=== PATIENT | female | born 1965 | race Caucasian/White ===

== ENCOUNTER → 2020-09-26 12:11 | Outpatient (CLI) | payer BC, SELFPAY ==
--- NOTE | ~2020-09-26 | MM_ITS ---
EXAMINATION: MM screening [facility] BI w franklyn HISTORY: Screening TECHNIQUE: Craniocaudal and mediolateral oblique 3-D tomosynthesis images were obtained and synthetic 2-D images were generated. CAD analysis was submitted and interpreted. COMPARISON: Comparison to multiple prior studies sequentially, with oldest reviewed study dated 06/13. BREAST PARENCHYMAL COMPOSITION: There are scattered areas of fibroglandular density. FINDINGS: There is no evidence of suspicious mass, calcification, or architectural distortion to sugg est malignancy in either breast. There has been no suspicious interval change. IMPRESSION: 1. No mammographic evidence of malignancy. 2. Recommend routine screening mammography in one year. BI-RADS Category 1: Negative Reviewed, dictated and finalized at location A. [employer]
== END ==
PROVIDERS: Visit Provider Nurse Practitioner
DX: Z12.31 Encounter for screening mammogram for malignant neoplasm of breast (principal)
CPT/HCPCS: 77063; 77067

== ENCOUNTER → 2021-10-04 07:45 | Outpatient (CLI) | payer BC, SELFPAY ==
--- NOTE | ~2021-10-04 | DEXA_ITS ---
Bone Density Report Name: COLLIN LAWRENCE Age: 56 Sex: Female Ethnicity: White Date of : 1965 Indication: postmenopausal osteoporosis; monitoring treatment; height loss; hysterectomy; Referring Provider: Darshan*Chacha Brandon Study: Bone densitometry was performed. Exam Date: October 04, 2021 Accession number: [id number] Bone Density: Region BMD T-score Z-score Classification AP Spine (L1-L4) 0.797 -2.3 -1.0 Osteopenia Femoral Neck (Left) 0.570 -2.5 -1.4 Osteoporosis Total Hip (Left) 0.725 -1.8 -1.0 Osteopenia Femoral Neck (Right) 0.531 -2.9 -1.7 Osteoporosis Total Hip (Right) 0.718 -1.8 -1.0 Osteopenia Total Hip Mean 0.722 -1.8 -1.0 Osteopenia World Health Organization criteria for BMD impression classify patients as: Normal (T-score at or above -1.0), Osteopenia (T-score between -1.0 and -2.5), or Osteoporosis (T-score at or below -2.5). 10-year Fracture Risk: FRAX not reported because: Some T-score for Spine Total or Hip Total or Femoral Neck at or below -2.5 Treated for osteoporosis Previous Exams: Region Exam Age BMD T-score BMD Change BMD Change Date g/cm2 vs Baseline vs Previous AP Spine(L1-L4) 10/04/2021 56 0.797 -2.3 -0.075* 0.056* 08/29/2019 54 0.741 -2.8 -0.131* -0.070* 07/19/2017 52 0.811 -2.1 -0.062* -0.062* 06/12/2015 50 0.872 -1.6 Total Hip(Left) 10/04/2021 56 0.725 -1.8 -0.104* 0.020 08/29/2019 54 0.705 -1.9 -0.125* -0.104* 07/19/2017 52 0.809 -1.1 -0.021 -0.021 06/12/2015 50 0.830 -0.9 Total Hip(Right) 10/04/2021 56 0.718 -1.8 -0.123* 0.033* 08/29/2019 54 0.685 -2.1 -0.156* -0.105* 07/19/2017 52 0.790 -1.2 -0.052* -0.052* 06/12/2015 50 0.842 -0.8 *Denotes significance at 95% confidence level, LSC for AP Spine = 0.022 g/cm2, LSC for Total Hip = 0.027 g/cm2 Clinical Information Provided by Patient: Smokes Is being treated for osteoporosis Has used the following medications: HRT (i.e. estrogen/hormone therapy), Prolia (i.e. denosumab), Vitamin D, Calcium Has the following medical conditions: Hysterectomy Patient maximum height was 65 Menopause Age: 48 Does not regularly consume dairy products Onset of menses at age 11 Number of children 1 Impression: The patient has osteoporosis, based on the Right Femoral Neck T-score.
--- NOTE | ~2021-10-04 | MM_ITS ---
EXAMINATION: MM screening [facility] BI w franklyn HISTORY: Screening mammogram TECHNIQUE: Craniocaudal and mediolateral oblique 3-D tomosynthesis images were obtained and synthetic 2-D images were generated. CAD analysis was submitted and interpreted. COMPARISON: 09/26/2020, 08/29/2019, 07/29/2018 BREAST PARENCHYMAL COMPOSITION: There are scattered areas of fibroglandular density. FINDINGS: There is no evidence of suspicious mass, calcification, or architectural distortion to sugg est malignancy in either breast. There has been no suspicious interval change. IMPRESSION: 1. No mammographic evidence of malignancy. 2. Recommend routine screening mammography in one year. BI-RADS Category 1: Negative Reviewed, dictated and finalized at location A. [employer]
== END ==
PROVIDERS: Visit Provider Nurse Practitioner
DX: Z12.31 Encounter for screening mammogram for malignant neoplasm of breast (principal); M85.89 Other specified disorders of bone density and structure, multiple sites; M81.0 Age-related osteoporosis without current pathological fracture; Z78.0 Asymptomatic menopausal state
CPT/HCPCS: 77063; 77067; 77080

== ENCOUNTER 2021-12-01 11:16 | Outpatient (CLI) | payer BC, SELFPAY ==
--- NOTE | 2021-12-01 11:24 | ECG_ITS ---
Measurements Intervals [place] Rate: 58 P: 71 TX: 156 QRS: 56 QRSD: 78 T: 27 QT: 405 QTc: 399 Interpretive Statements SINUS BRADYCARDIA WITH SINUS ARRHYTHMIA NORMAL ECG Electronically Signed On 12-01-2021 15:45:01 CDT by Silas Anne M.D.
== END 2021-12-01 11:17 | disposition home or self-care (01) ==
LOC: ANHSURGERY 11:21
PROVIDERS: PCP Family Medicine; Visit Provider Otolaryngology
DX: I10 Essential (primary) hypertension (principal); Z01.818 Encounter for other preprocedural examination
CPT/HCPCS: 93005

== ENCOUNTER 2021-12-05 01:48 | Day surgery (SDC) | payer BC, SELFPAY ==
[2021-11-26 14:23] VITALS: BMI 19.1
--- NOTE | 2021-11-26 14:36 | PC.NURSE ---
Report to the Outpatient Waiting Room, entrance under the green pavilion located off [facility], at time 10:30 on date 12/05/21. OR Time: 12:30. - You and your visitor will be asked a series of questions to screen for COVID 19 for your protection. - A mask is required within the hospital. One visitor will be allowed to accompany the patient into the hospital. Patients visitor will be instructed to remain with patient at all times or leave the building. We will allow the visitor to come back to the postoperative area when patient is ready. Preoperative COVID Testing Requirements: No COVID Test needed if: (proof is required; if not received patient will have Rapid Test prior to entry) - Patient has received COVID Vaccine at least 14 days prior to procedure date or - Patient has positive COVID test result within last 90 days of surgery date. COVID Test needed if above criteria is not met Patients may have clear liquids (water, carbonated beverages, clear teas, apple juice) until 3 hours prior to surgery (9:30) with a maximum of 20 ounces. - No food from midnight until time of surgery Take the following medications with a SIP of water the morning of surgery: NONE Medications to discontinue per physician: VITAMINS/SUPPLEMENTS Date to take last dose: 12/01/21 Please no make-up, nail [place], hairspray, perfume, deodorant, or body powder the day of surgery. No jewelry (including any body piercings) or valuables the day of surgery, leave them at home. Please take a shower or bath the night before, or the morning of, surgery with an antibacterial soap. Wear comfortable, loose fitting clothing. - Jewelry must be removed prior to entering the operating room. Rings and piercings that are not removed may be cut off. - The hospital will not accept responsibility for valuables. - Please leave all valuables, including medications, at home the day of surgery. If you are going home after surgery, a licensed independent driver must drive you home. - NO public transportation without another adult. - We recommend that an adult stay with you for 24 hours following discharge. - We also recommend that you do not drive, make important decision, drink alcoholic beverages, or take any drugs that were not prescribed by your health care provider for at least 24 hours after your discharge time. Follow any additional instructions given to you from your surgeon. Telephone instructions given to COLLIN LAWRENCE and asked if any additional questions and then verbalized understanding. Patient advised to call surgeon office or pre surgery nurse liaison [phone] if any additional questions.
--- NOTE | 2021-12-04 17:31 | PM.IMHP ---
H&P: HPI History of Present Illness Date/Time: 12/04/21 17:31 Chief Complaint: Lower lip hemangioma Narrative: patient presents for planned surgical procedure no change in symptoms no change in history Review of Systems Constitutional: Constitutional: Denies fatigue, Denies fever(s) and Denies lethargy Eyes: Eyes: Denies blurry vision and Denies change in vision ENT: Reports as per HPI Cardiovascular: Cardiovascular: Denies chest pain Respiratory: Respiratory: Denies cough Endocrine: Endocrine: Denies fatigue Hematologic/Lymphatic: Hematologic/Lymphatic: Denies easy bleeding, Denies easy bruising and Denies lymphadenopathy Allergic/Immunologic: Allergic/Immunologic: Denies seasonal rhinorrhea [facility] Family History Family History Mother Family history of coronary artery disease Social History Social History Smoking packs per day: 0.5 Smoking cigarettes per day: 10.0 Years smoked: 30 Smoking pack-years: 15.00 Smoking status: Former smoker Tobacco type: cigarettes Smoking end date: 03/16/20 Alcohol intake: never Substance use: never Substance use type: does not use Spiritual care concerns: No Meds Home Medications and Allergies Home Medications Medication Instructions Recorded Confirmed Type Saccharomyces boulardii 250 mg 250 mg PO BID 09/15/19 11/26/21 History capsule ospemifene 60 mg tablet 60 mg PO DAILY 09/15/19 11/26/21 History cetirizine 10 mg tablet 10 mg PO DAILY 03/18/20 11/26/21 History omeprazole 40 mg capsule,delayed 40 mg PO DAILY #30 cap 10/17/21 11/26/21 Rx release lisinopril 10 1 tablet PO DAILY #90 tablet 10/29/21 11/26/21 Rx mg-hydrochlorothiazide 12.5 mg tablet calcium carbonate [Calcium 500] 500 mg PO BID 11/26/21 11/26/21 History cholecalciferol (vitamin D3) 50 mcg PO DAILY 11/26/21 11/26/21 History [Vitamin D3] Allergies Allergy/AdvReac Type Severity Reaction Status Date / Time escitalopram AdvReac Unknown Abdominal Verified 11/26/21 14:20 Pain Dairy AdvReac Severe DIARRHEA Uncoded 11/26/21 14:20 Exam Const: General: cooperative, healthy appearing, comfortable, well developed and alert HENMT: Head: normal to inspection, normocephalic and atraumatic Ears: hearing grossly normal bilaterally, external ears normal, TM's normal bilaterally and EAC's normal General nose exam: Normal external nose present, Normal nares present, No nasal polyps present, Normal nasal mucous membranes and turbinates present and Normal septum present Face and sinus: normal facial exam Mouth: Yes Normal oral and palatal mucosa present, No lip normal ( lower lip hemangioma), Yes tongue normal, Yes oropharynx normal and Yes moist mucous membranes Teeth and gingiva: dentition normal and gingiva normal Throat: posterior oropharynx normal, tonsils normal and uvula midline Eyes: General: appearance normal, both eyes and all related structures Periorbital: periorbital findings normal Eyelids: eyelids normal Conjunctivae: conjunctivae normal Sclera: sclerae normal Neck: Neck: normal visual inspection, full ROM and no lymphadenopathy Thyroid: thyroid normal Lymphatic: no lymphadenopathy noted Resp: Effort & Inspection: normal respiratory effort and able to speak in complete sentences Cardio: Jugular venous distension: no JVD Neuro: Cranial nerves: Yes CN's II-XII intact bilaterally Assessment and Plan Assessment and plan (1) Hemangioma of lip: Code(s): D18.01 - Hemangioma of skin and subcutaneous tissue Status: Acute Assessment and Plan: plan is for the operating room excision of lower lip hemangioma will need small bipolar both sets, soft tissue Hima/ plastics tray. Risks were discussed including bleeding infection scar cosmetic deformity recurrence of the hemangioma need for further procedure need for follow-up. Kirstin
--- NOTE | 2021-12-05 07:12 | WPDHPUPDATE1 ---
History and Physical Update Update Date/Time: 12/05/21 07:12 History and Physical has been reviewed, including an updated exam of the patient. There are NO changes in the patient's condition. Risks, benefits, and alternatives have been discussed and questions answered. Patient agrees to proceed with procedure.
[2021-12-05 11:06] VITALS: BP 153/81; PULSE 56; RESP 16; TEMP 36.7; O2SAT 100
[2021-12-05] MEDS: LACTATED RINGERS 1,000 ML 30 ML IV CONT ×2 (11:22→14:41)
--- NOTE | 2021-12-05 11:29 | P.PNAN_ITS ---
Anes - Initial Pre Proc Eval Procedure: Operation Date: 12/05/21 14:00 Proposed Procedures p Excision Lower Lip Lesion - Surya Grider MD Date/Time: 12/05/21 11:29 Surgeon: Surya Grider MD Pre Op Diagnosis: lower lip lesion Patient Data Age: 56 Gender: F Height: 1.65 m Weight: 57.6 kg Last Vital Signs Temp 36.7 C 12/05/21 11:06 Pulse 56 L 12/05/21 11:06 Resp 16 12/05/21 11:06 BP 153/81 H 12/05/21 11:06 Pulse Ox 100 12/05/21 11:06 Allergies Allergy/AdvReac Type Severity Reaction Status Date / Time escitalopram AdvReac Unknown Abdominal Verified 11/26/21 14:20 Pain Dairy AdvReac Severe DIARRHEA Uncoded 11/26/21 14:20 Home Medications Medication Instructions Recorded Confirmed Type Saccharomyces boulardii 250 mg 250 mg PO BID 09/15/19 12/05/21 History capsule ospemifene 60 mg tablet 60 mg PO DAILY 09/15/19 12/05/21 History cetirizine 10 mg tablet 10 mg PO DAILY 03/18/20 12/05/21 History omeprazole 40 mg capsule,delayed 40 mg PO DAILY #30 cap 10/17/21 12/05/21 Rx release lisinopril 10 1 tablet PO DAILY #90 tablet 10/29/21 12/05/21 Rx mg-hydrochlorothiazide 12.5 mg tablet calcium carbonate [Calcium 500] 500 mg PO BID 11/26/21 12/05/21 History cholecalciferol (vitamin D3) 50 mcg PO DAILY 11/26/21 12/05/21 History [Vitamin D3] Patient hx anesthesia problems: none Family hx anesthesia problems: none Results Review: All pre-operative results and documents have been reviewed as part of the pre-operative evaluation. [facility] Past Medical History Medical History HTN (hypertension) Family History Family History Mother Family history of coronary artery disease Social History Social History Smoking packs per day: 0.5 Smoking cigarettes per day: 10.0 Years smoked: 30 Smoking pack-years: 15.00 Smoking status: Former smoker Tobacco type: cigarettes Smoking end date: 03/16/20 Alcohol intake: never Substance use: never Substance use type: does not use Living arrangements: with family Spiritual care concerns: No Anes - Eval Final PreProcedure Day of Procedure 12/05/21 11:29 Patient weight: normal Heart: regular rate and rhythm Lungs: clear to auscultation Airway: Mallampati scale class II Neurological: alert and oriented Last oral intake: >/= 8 hours ASA classification: II Emergent: no Anesthetic plan: proceed Anesthesia type and monitoring: general GIVS and standard monitoring Results Review: All pre-operative results and documents have been reviewed as part of the pre-operative evaluation. Informed Consent: The patient's anesthetic plan and its attendant risks and benefits were discussed with the patient/family/POA. Questions were solicited and answers provided to the satisfaction of the patient/family/POA.
--- NOTE | 2021-12-05 13:10 | SUR.PREOP ---
Warm blanket given to patient. Discussed delay, voices understanding.
[2021-12-05] MEDS: ceFAZolin SODIUM 1 GM VIAL IV PUSH (14:02)
[2021-12-05] MEDS: NEOMYCIN/POLYMYXIN/BACITRACIN OINTMENT PACKET 1 PACKET TOPICAL (14:34)
[2021-12-05 14:41] VITALS: BP 92/60; PULSE 53; RESP 17; TEMP 36.1; O2SAT 100
[2021-12-05 14:55] VITALS: BP 110/70; PULSE 68; RESP 20; O2SAT 100
[2021-12-05 15:10] VITALS: BP 152/78; PULSE 65; RESP 16
[2021-12-05 15:40] VITALS: BP 136/63; PULSE 61; RESP 16
--- NOTE | 2021-12-05 16:33 | W.PM.PROC2 ---
Procedure Note - Detailed Date of Procedure 12/05/21 Pre-op Diagnosis lower lip lesion Post-op Diagnosis Same Procedure Performed Excision of lower lip lesion Surgeon Surya Grider MD Anesthesia General Indications Lower lip lesion Findings Lower lip lesion consistent with meningioma removed in elliptical 1 via elliptical incision down to muscle Description of Procedure Patient identified consent verified. Patient brought OR. Time-out performed. Anesthesia induced LMA secured. Patient prepped and draped in a semi sterile fashion. Second time-out performed. Lip grabbed 0.5 cc injected just over the blue small lesion the lower lip. Fifteen C blade utilized elliptical incision made around lesion lesion dissected down to muscle orbicularis auris feeding vessels cauterized with Bovie suction electrocautery at a setting of 5. Lesion removed sent for pathologic analysis of note this was later misplaced and not sent. Lesion was then closed in deep layer using 1 interrupted 4-0 Monocryl suture the lip skin was closed with 4 interrupted 5 0 fast gut sutures. Patient tolerated the procedure very well. No complications. Antibiotic ointment placed. Prior to closure the wound was copiously irrigated. Care the patient turned Anesthesiology. Estimated Blood Loss 1 Drains No Packing No Pathology None sent Complications No immediate complications Condition Stable Disposition PACU
== END 2021-12-05 16:05 | disposition home or self-care (01) ==
PROVIDERS: PCP Family Medicine; Visit Provider Otolaryngology
PROC: (CPT 40810; principal; 2021-12-05 14:00)
DX: D18.01 Hemangioma of skin and subcutaneous tissue (principal); Z87.891 Personal history of nicotine dependence
CPT/HCPCS: 11441; 12051; A9270; J0690; J1100; J2250; J2405; J2704; J3010; J7120

== ENCOUNTER 2022-09-18 13:57 | Emergency (ER) | payer BC, SELFPAY ==
[2022-09-18 14:21] VITALS: BP 121/63; PULSE 86; RESP 18; TEMP 38.1; O2SAT 99
--- NOTE | 2022-09-18 14:44 | ED.URI ---
HPI - URI/Sore Throat General Chief Complaint: Upper Respiratory Infection Stated Complaint: nasal drainage,sorethroat,bilateral ear pain Time Seen by Provider: 09/18/22 14:45 Source: patient and RN notes reviewed Mode of arrival: ambulatory Limitations: no limitations History of Present Illness HPI Narrative: 57-year-old female presented for complaint of sinus pressure, congestion, sore throat and ear pain over the last 3 days. She denies fatigue, nausea vomiting, diarrhea shortness of breath, wheezing, fevers or chills. She started taking Zyrtec for symptoms. She endorses her tested positive for COVID 7 days ago. She has not tested for COVID. MD elicited complaint: cough Related Data Home Medications Medication Instructions Recorded Confirmed ospemifene 60 mg tablet (Osphena) 60 mg PO DAILY 09/15/19 09/18/22 Allergies Allergy/AdvReac Type Severity Reaction Status Date / Time escitalopram AdvReac Unknown Abdominal Verified 09/18/22 14:31 Pain Dairy AdvReac Severe DIARRHEA Uncoded 09/18/22 14:31 Review of Systems Review of Systems: CONSTITUTIONAL: denies malaise, chills, sweats, fever EYES: Denies visual changes, redness, or discharge ENT: Reports rhinorrhea, congestion, sinus pain, otalgia, sore throat CARDIOVASCULAR: Denies chest pain, palpitations, edema RESPIRATORY: Reports cough, post nasal drainage. Denies dyspnea GASTROINTESTINAL: Denies abdominal pain, nausea, vomiting, diarrhea SKIN: Denies rash or itching MUSCULOSKELETAL: denies myalgia NEUROLOGIC: Denies headache PMF Past Medical History Medical History HTN (hypertension) Family History Family History Mother Family history of coronary artery disease Social History Social History Smoking packs per day: 0.5 Smoking cigarettes per day: 10.0 Years smoked: 30 Smoking pack-years: 15.00 Smoking status: Former smoker Tobacco type: cigarettes Smoking end date: 03/16/20 Alcohol intake: never Substance use: never Substance use type: does not use Spiritual care concerns: No Exam Narrative: GENERAL: Ill-appearing, nontoxic EYES: PERRLA, conjunctivae clear ENT: Mucous membranes moist. TM pearly douglas with dull light reflex bilaterally; no tragal tenderness. Oropharynx erythematous without lesions or exudate, no drooling, no hoarseness, no trismus, uvula midline. CHEST: Clear to auscultation, breath sounds equal. No wheezing, rhonchi, rales, or stridor. No respiratory distress, speaks in full sentences. HEART: Regular rate and rhythm. No murmur heard. SKIN: Warm, dry, no rash. NEURO: Alert and oriented x3. PSYCH: Normal mood and affect Course Course Emergency Course: Patient is aware of diagnosis, understands and agrees to treatment plan. Anticipatory guidance given. Patient agrees to follow-up as directed and is aware of reasons to seek care at the emergency department. Portions of this record may have been created with voice recognition software Level of Care: Express Care Visit Vital Signs Vital signs: Vital Signs Temperature 100.5 F H 09/18/22 14:21 Pulse Rate 86 09/18/22 14:21 Respiratory Rate 18 09/18/22 14:21 Blood Pressure 121/63 09/18/22 14:21 Pulse Oximetry 99 09/18/22 14:21 Oxygen Delivery Room Air 09/18/22 14:21 Temperature 100.5 F H 09/18/22 14:21 Pulse Rate 86 09/18/22 14:21 Respiratory Rate 18 09/18/22 14:21 Blood Pressure 121/63 09/18/22 14:21 Pulse Oximetry 99 09/18/22 14:21 Oxygen Delivery Room Air 09/18/22 14:21 reviewed MDM - URI/Sore Throat MDM Narrative Medical decision making narrative: flu and strep negative. Advise COVID test due to known exposure. Covid positive. Advised supportive measures and signs/symptoms to go to the ER. Pt is appropriate for outpt
== END 2022-09-18 15:10 | disposition home or self-care (01) ==
PROVIDERS: Emergency Provider Nurse Practitioner Family; PCP Family Medicine
DX: U07.1 COVID-19 (principal); Z87.891 Personal history of nicotine dependence; I10 Essential (primary) hypertension
CPT/HCPCS: 87081; 87426; 87804; 87880; 99213; C9803; G0463

== ENCOUNTER → 2022-10-19 14:43 | Outpatient (CLI) | payer BC, SELFPAY ==
--- NOTE | ~2022-10-19 | MM_ITS ---
EXAMINATION: MM screening [facility] BI w franklyn HISTORY: Screening mammogram TECHNIQUE: Craniocaudal and mediolateral oblique 3-D tomosynthesis images were obtained and synthetic 2-D images were generated. CAD analysis was submitted and interpreted. COMPARISON: 10/04/2021, 09/26/2020, 08/29/2019 bilateral screening mammogram examinations BREAST PARENCHYMAL COMPOSITION: There are scattered areas of fibroglandular density. FINDINGS: There is no evidence of suspicious mass, calcification, or architectural distortion to sugg est malignancy in either breast. There has been no suspicious interval change. IMPRESSION: 1. No mammographic evidence of malignancy. 2. Recommend routine screening mammography in one year. BI-RADS Category 1: Negative Reviewed, dictated and finalized at location A. [employer]
== END ==
PROVIDERS: PCP Family Medicine; Visit Provider Nurse Practitioner
DX: Z12.31 Encounter for screening mammogram for malignant neoplasm of breast (principal)
CPT/HCPCS: 77063; 77067

== ENCOUNTER 2024-01-04 12:14 | Outpatient (CLI) | payer BC, SELFPAY ==
--- NOTE | ~2024-01-04 | DEXA_ITS ---
Bone Density Report Name: COLLIN LAWRENCE Age: 58 Sex: Female Ethnicity: White Date of : 1965 Indication: osteopenia; monitoring treatment; height loss; hysterectomy; Referring Provider: Darshan*Chacha Brandon Study: Bone densitometry was performed. Exam Date: January 04, 2024 Accession number: [id number] Bone Density: Region BMD T-score Z-score Classification AP Spine (L1-L4) 0.773 -2.5 -1.1 Osteoporosis Femoral Neck (Left) 0.536 -2.8 -1.6 Osteoporosis Total Hip (Left) 0.685 -2.1 -1.2 Osteopenia Femoral Neck (Right) 0.617 -2.1 -0.8 Osteopenia Total Hip (Right) 0.701 -2.0 -1.0 Osteopenia Total Hip Mean 0.693 -2.1 -1.1 Osteopenia World Health Organization criteria for BMD impression classify patients as: Normal (T-score at or above -1.0), Osteopenia (T-score between -1.0 and -2.5), or Osteoporosis (T-score at or below -2.5). 10-year Fracture Risk: FRAX not reported because: Some T-score for Spine Total or Hip Total or Femoral Neck at or below -2.5 Treated for osteoporosis Previous Exams: Region Exam Age BMD T-score BMD Change BMD Change Date g/cm2 vs Baseline vs Previous AP Spine(L1-L4) 01/04/2024 58 0.773 -2.5 -0.100* -0.025* 10/04/2021 56 0.797 -2.3 -0.075* 0.056* 08/29/2019 54 0.741 -2.8 -0.131* -0.070* 07/19/2017 52 0.811 -2.1 -0.062* -0.062* 06/12/2015 50 0.872 -1.6 Total Hip(Left) 01/04/2024 58 0.685 -2.1 -0.144* -0.040* 10/04/2021 56 0.725 -1.8 -0.104* 0.020 08/29/2019 54 0.705 -1.9 -0.125* -0.104* 07/19/2017 52 0.809 -1.1 -0.021 -0.021 06/12/2015 50 0.830 -0.9 Total Hip(Right) 01/04/2024 58 0.701 -2.0 -0.140* -0.017 10/04/2021 56 0.718 -1.8 -0.123* 0.033* 08/29/2019 54 0.685 -2.1 -0.156* -0.105* 07/19/2017 52 0.790 -1.2 -0.052* -0.052* 06/12/2015 50 0.842 -0.8 *Denotes significance at 95% confidence level, LSC for AP Spine = 0.022 g/cm2, LSC for Total Hip = 0.027 g/cm2 Clinical Information Provided by Patient: Is being treated for osteoporosis Has used the following medications: HRT (i.e. estrogen/hormone therapy), Prolia (i.e. denosumab), Vitamin D, Calcium Has the following medical conditions: Hysterectomy Patient maximum height was 65.0 Menopause Age: 48 Does not regularly consume dairy products Onset of menses at age 11 Number
--- NOTE | ~2024-01-04 | MM_ITS ---
EXAMINATION: MM screening [facility] w franklyn HISTORY: Screening mammogram TECHNIQUE: Craniocaudal and mediolateral oblique 3-D tomosynthesis images were obtained and synthetic 2-D images were generated. CAD analysis was submitted and interpreted. COMPARISON: October 19, 2022, October 04, 2021 bilateral screening mammogram examinations BREAST PARENCHYMAL COMPOSITION: There are scattered areas of fibroglandular density. FINDINGS: There is no evidence of suspicious mass, calcification, or architectural distortion to sugg est malignancy in either breast. There has been no suspicious interval change. IMPRESSION: 1. No mammographic evidence of malignancy. 2. Recommend routine screening mammography in one year. BI-RADS Category 1: Negative Reviewed, dictated and finalized at location A.
== END 2024-01-04 12:15 ==
LOC: MICIMG 12:15
PROVIDERS: PCP Nurse Practitioner; Visit Provider Nurse Practitioner
DX: Z12.31 Encounter for screening mammogram for malignant neoplasm of breast (principal); M81.0 Age-related osteoporosis without current pathological fracture
CPT/HCPCS: 77063; 77067; 77080

== ENCOUNTER 2025-01-05 10:13 | Outpatient (CLI) | payer BC, SELFPAY ==
--- NOTE | ~2025-01-05 | MM_ITS ---
EXAMINATION: MM screening [facility] w franklyn HISTORY: Screening TECHNIQUE: Craniocaudal and mediolateral oblique 3-D tomosynthesis images were obtained and synthetic 2-D images were generated. CAD analysis was submitted and interpreted. COMPARISON: Comparison to multiple prior studies sequentially, with oldest reviewed study dated 07/14. BREAST PARENCHYMAL COMPOSITION: Not dense: There are scattered areas of fibroglandular density. FINDINGS: There is no evidence of suspicious mass, calcification, or architectural distortion to sugg est malignancy in either breast. There has been no suspicious interval change. IMPRESSION: 1. No mammographic evidence of malignancy. 2. Recommend routine screening mammography in one year. BI-RADS Category 1: Negative Reviewed, dictated and finalized at location A.
== END 2025-01-05 10:14 | disposition home or self-care (01) ==
LOC: MICIMG 10:14
PROVIDERS: PCP Nurse Practitioner; Visit Provider Nurse Practitioner
DX: Z12.31 Encounter for screening mammogram for malignant neoplasm of breast (principal)
CPT/HCPCS: 77063; 77067

== ENCOUNTER 2025-04-30 12:37 | Outpatient (CLI) | payer BC, SELFPAY ==
--- NOTE | ~2025-04-30 | CT_ITS ---
CLINICAL INDICATION: Left lower quadrant pain COMPARISON: None. TECHNIQUE: Multiple contiguous axial images of the abdomen and pelvis were performed without the admi nistration of intravenous contrast The dose-length product (DLP) was 239.14 mGy-cm. Automated exposure control and iterative reconstruction technique were employed. FINDINGS/OBSERVATIONS: Visualized lower thorax: The bilateral lung bases are clear. The heart is of normal size, without pericardial effusion. Small hiatal hernia is present. Liver: The liver demonstrates homogeneous attenuation and is not enlarged measuring cm in longitudinal dimen markell. Gallbladder and biliary system: The gallbladder is surgically absent. Pancreas: Limited evaluation of the pancreas secondary to the lack of intravenous contrast. Spleen: The spleen demonstrates homogeneous attenuation and is not enlarged. Kidneys: The bilateral kidneys are unremarkable, without hydronephrosis or renal calculi. Adrenal glands: Unremarkable. Gastrointestinal tract: Oral contrast extends to the level of distal sigmoid colon, without obstructi on. Significant fecal stasis. A 6 cm focus of mural thickening with surrounding inflammatory change is identified within the rectos igmoid colon. Scattered diverticula are identified throughout the colon, with 1-2 diverticulum just proximal to thi s area. While this may represent diverticulitis (in the appropriate clinical setting) a malignancy has a tiago lar appearance for which follow-up to resolution is recommended. Appendix: The air-filled appendix is of normal caliber (axial series, images 103 through 117). Vasculature: Calcified atherosclerotic disease within the abdominal aorta, without aneurysmal dilatation. Lymph nodes: Limited evaluation without intravenous contrast. Pelvic structures: The bladder is distended, and otherwise unremarkable. The uterus is likely surgically absent or markedly atrophic. Body wall and musculoskeletal: Age-appropriate degenerative disease within the lower thoracic and lumbosacral spine. IMPRESSION: A 6 cm focus of mural thickening with surrounding inflammatory change is identified within the rectos igmoid colon. Scattered diverticula are identified within the colon, with 1-2 diverticulum just proximal to this ar ea. While this may represent acute/early diverticulitis (in the appropriate clinical setting) a malignanc y has a similar appearance for which follow-up to resolution is recommended. Reviewed, dictated and finalized at location A. IMPRESSION: A 6 cm focus of mural thickening with surrounding inflammatory change is identi fied within the rectosigmoid colon. Scattered diverticula are identified within the colon, with 1-[address] proximal to this area. While this may represent acute/early diverticulitis (in the appropriate clinica l setting) a malignancy has a similar appearance for which follow-up to [facility] is recommended.
[2025-04-30 13:36] LABS: Add Urine Microscopic? YES; Appearance Urine Clear (Clear); Glucose Urine UA Negative (Negative); Leukocyte Esterase Ur 1+ LEU/UL (Negative); Nitrate Urine Negative (Negative); Non Pathogenic Casts 0-2; Specific Grav Ur 1.008 (1.001-1.035)
[2025-04-30 13:37] LABS: Hematocrit 36.5 % (37.0-47.0); Hemoglobin 11.9 g/dL (12.0-15.0); Immature Granulocyte Percent A 0.5 % (0-0.5); Lymphocytes Absolute Auto 1.45 K/mm3 (0.9-3.2); Mean Corpuscular HGB Conc 32.6 g/dl (32-36); Mean Corpuscular Hemoglobin 30.1 pg (26-34); Mean Corpuscular Volume 92.4 fl (80-100); Nucleated Red Blood Cells Absolute Auto 0.000 K/mm3 (0.0-0.012); Nucleated Red Blood Cells Perc 0.0 % (0.0-0.2); Platelet Count Result 241 k/mm3 (150-375); Red Blood Count 3.95 M/mm3 (4.2-5.4); White Blood Count 8.3 K/mm3 (4.5-10.0)
[2025-04-30 13:58] LABS: Alanine Aminotransferase 16 U/L (6-35); Albumin Level 4.1 g/dL (3.5-5.1); Alkaline Phosphatase 89 U/L (38-126); Anion Gap 10 mmol/L (4-12); Aspartate Amino Transferase 29 U/L (14-36); Bilirubin,Total 0.6 mg/dL (0.2-1.3); Blood Urea Nitrogen 10 mg/dL (7-17); Calcium 9.2 mg/dL (8.4-10.2); Carbon Dioxide 31 mmol/L (22-30); Chloride 95 mmol/L (98-107); Estimated Glomerular Filt Rate > 60; Glucose 90 mg/dL (65-110); Potassium 3.0 mmol/L (3.4-5.0); Sodium 136 mmol/L (137-145); Total Protein 8.1 g/dL (6.3-8.2)
== END 2025-04-30 12:38 | disposition home or self-care (01) ==
LOC: ANHIMG 12:39
PROVIDERS: PCP Family Medicine; Visit Provider Physician Assistant
DX: K57.30 Diverticulosis of large intestine without perforation or abscess without bleeding (principal); R19.8 Other specified symptoms and signs involving the digestive system and abdomen
CPT/HCPCS: 36415; 74176; 80053; 81001; 85025; 87086

== ENCOUNTER 2025-05-02 16:29 | Inpatient (IN) | payer BC, SELFPAY ==
[2025-05-02] VITALS (17 sets, daily range): BP systolic 109–138; BP diastolic 62–78; PULSE 66–100; RESP 14–18; TEMP 36.6–36.7; O2SAT 98–100; BMI 21.1
--- NOTE | ~2025-05-02 | CT_ITS ---
EXAMINATION: CT abdomen pelvis w con DATE: 05/02/2025 18:57 INDICATION: Recent diverticulitis diagnosis. TECHNIQUE: Computed tomography (CT) of the abdomen and pelvis was performed with 100 cc Omnipaque 350 intravenous contrast. The dose-length product was 233.35 mGy-cm. Automated exposure control and iterative reconstruction technique were employed. COMPARISON: 04/30/2025 FINDINGS: Lung bases unremarkable. Heart size normal. No significant pleural or pericardial effusion. The liver, spleen, pancreas, adrenal glands and kidneys are unremarkable. Gallbladder is surgically absent. Nonobstructive bowel gas pattern. There is abnormal thickening of the left colon including the descending, sigmoid colon and rectum with thickening most prominent in the sigmoid colon. There is mild surrounding phlegmonous change. Findings suspicious for colitis, most likely infectious/inflammatory. Differential diagnosis includes diverticulitis and colon carcinoma, although these are less favored. There is trace free fluid in the pelvis. No lymphadenopathy. Mild lumbar spondylosis. IMPRESSION: 1. Abnormal thickening of the left colon including the descending, sigmoid colon and rectum with thickening most prominent in the sigmoid colon. There is mild surrounding phlegmonous change. Findings suspicious for colitis, most likely infectious/inflammatory. Differential diagnosis includes diverticulitis and colon carcinoma, although these are less favored. Reviewed, dictated and finalized at location A. IMPRESSION: 1. Abnormal thickening of the left colon including the descending, sigmoid colo n and rectum with thickening most prominent in the sigmoid colon. There is mild surrounding phlegmonous change. Findings suspicious for colitis, most likely i nfectious/inflammatory. Differential diagnosis includes diverticulitis and colo n carcinoma, although these are less favored.
--- NOTE | 2025-05-02 17:57 | ED.GENADULT ---
HPI - General Adult General Chief complaint: Nausea/Vomiting/Diarrhea <Karan Guerrero MD - Last Filed: 05/02/25 18:36> Stated complaint: Vomiting-Hx Diverticulitis <Karan Guerrero MD - Last Filed: 05/02/25 18:36> Time Seen by Provider: 05/02/25 17:37 <Karan Guerrero MD - Last Filed: 05/02/25 18:36> History of Present Illness HPI narrative: patient is a 60-year-old female who presents emergency department with chief complaint of nausea vomiting. Patient reports that she has prior history of diverticulitis and was recently started on on Cipro and Flagyl patient reports he started having nausea vomiting but does report the pain has been improving <Karan Guerrero MD - Last Filed: 05/02/25 18:36> Related Data Home medications: Home Medications ?Medication ?Instructions ?Recorded ?Confirmed ?Last Taken ?Type ospemifene 60 mg tablet (Osphena) 60 mg PO DAILY 09/15/19 05/02/25 04/30/25 History Calcium 600 2 tab-cap PO BID 01/11/24 05/02/25 04/30/25 History Vitamin D3 2 tab-cap PO DAILY 01/11/24 05/02/25 04/30/25 History <Karan Guerrero MD - Last Filed: 05/02/25 18:36> Allergies/adverse reactions: Allergies Allergy/AdvReac Type Severity Reaction Status Date / Time escitalopram AdvReac Unknown Abdominal Verified 04/30/25 11:23 Pain Dairy AdvReac Severe DIARRHEA Uncoded 04/30/25 11:23 <Karan Guerrero MD - Last Filed: 05/02/25 18:36> Review of Systems Review of Systems: A 10 system review of systems was completed on the patient and is negative except for what is stated in the HPI. Nursing and ancillary documentation was reviewed. <Karan Guerrero MD - Last Filed: 05/02/25 18:36> PMFSH Past Medical History Medical History: Medical History (Updated 05/02/25 @ 20:26 by ELLA Bean) Dehydration Colitis HTN (hypertension) <Karan Guerrero MD - Last Filed: 05/02/25 18:36> Family History Family History: Family History Mother Family history of coronary artery disease <Karan Guerrero MD - Last Filed: 05/02/25 18:36> Social History Social History: Social History Smoking packs per day: 0 Smoking cigarettes per day: 0.0 Years smoked: 30 Smoking pack-years: 0.00 Smoking status: Former smoker Tobacco type: cigarettes Second hand tobacco smoke exposure: Yes Smoking end date: 03/16/20 Alcohol intake: never Substance use: never Substance use type: does not use Lack of Transportation: No Lack of Food: Never True Current Housing: I Have Housing Concerned About Future Housing: No Difficulty Paying Gas/Electric Bills: No Difficulty Paying for Meds: No Currently Unemployed: No Education: High School Diploma/GED Difficulty w/ Childcare or Family Care: No Living arrangements: with family Spiritual care concerns: No <Karan Geurrero MD - Last Filed: 05/02/25 18:36> Exam Narrative: GENERAL: Well-appearing, well-nourished, and in no acute distress. HEAD: Normocephalic, atraumatic. EYES: PERRLA and EOMI. ENT: Nares clear, no rhinorrhea or epistaxis. Mucous membranes moist. NECK: Supple. CHEST: Clear to auscultation. No respiratory distress. HEART: Regular rate and rhythm. No murmur heard. Normal peripheral pulses. ABDOMEN: Soft, minimal tenderness in the left lower quadrant, nondistended, normal active bowel sounds. EXTREMITIES: Normal range of motion. No edema. SKIN: Warm, dry, no rash. NEURO: No focal deficits. Alert and oriented x3. PSYCH: Normal mood and affect. <Karan Guerrero MD - Last Filed: 05/02/25 18:36> Course Vital Signs Vital signs: Vital Signs Temperature 97.9 F 05/02/25 16:41 Pulse Rate 72 05/02/25 16:41 Respiratory Rate 16 05/02/25 16:41 Blood Pressure 138/71 05/02/25 16:41 Pulse Oximetry 100 05/02/25 16:41 Temperature 97.9 F 05/03/25 00:00 Pulse Rate 64 05/03/25 00:00 Respiratory Rate 18 05/03/25 00:00 Blood Pressure 96/54 L 05/03/25 00:00 Pulse Oximetry 99 05/03/25 00:00 Oxygen Delivery Room Air 05/02/25 21:55 <Karan Guerrero MD - Last Filed: 05/02/25 18:36> Vital Signs Temperature 97.9 F 05/02/25 16:41 Pulse Rate 72 05/02/25 16:41 Respiratory Rate 16 05/02/25 16:41 Blood Pressure 138/71 05/02/25 16:41 Pulse Oximetry 100 05/02/25 16:41 Temperature 97.9 F 05/03/25 00:00 Pulse Rate 64 05/03/25 00:00 Respiratory Rate 18 05/03/25 00:00 Blood Pressure 96/54 L 05/03/25 00:00 Pulse Oximetry 99 05/03/25 00:00 Oxygen Delivery Room Air 05/02/25 21:55 <Vicki Jones MD - Last Filed: 05/03/25 01:28> Medical Decision Making MDM Narrative Medical decision making narrative: differential diagnosis includes intra-abdominal abscess, diverticulitis, distal perforation, electrolyte abnormality, dehydration laboratory studies were obtained on the patient showed white count 5.9 electrolytes showed a sodium 126 potassium 3.2 normal BUN and creatinine urinalysis showed 1+ protein 4+ ketones the patient received 2 L of normal saline bolus Zofran also 20 mg once of IV potassium repeat CT scan has been ordered plan will be to get the CT scan potentially discussed with the hospitalist for admission for observation since she has significant electrolyte abnormality <Karan Guerrero MD - Last Filed: 05/02/25 18:36> differential diagnosis includes intra-abdominal abscess, diverticulitis, distal perforation, electrolyte abnormality, dehydration laboratory studies were obtained on the patient showed white count 5.9 electrolytes showed a sodium 126 potassium 3.2 normal BUN and creatinine urinalysis showed 1+ protein 4+ ketones the patient received 2 L of normal saline bolus Zofran also 20 mg once of IV potassium repeat CT scan has been ordered Plan will be to get the CT scan potentially discussed with the hospitalist for admission for observation since she has significant electrolyte abnormality. Robert: Patient signed out to me pending CT abdomen pelvis with IV contrast. CT was obtained revealing evidence of colitis. Case discussed with the on-call hospitalist for admission given that the patient has failed outpatient therapy with intractable nausea/vomiting and dehydration, electrolyte derangements including her hypokalemia and hyponatremia. Patient was admitted to our general medical floor in stable condition. <Vicki Jones MD - Last Filed: 05/03/25 01:28> Vital Signs Vital Signs: Vital Signs Temperature 97.9 F 05/02/25 16:41 Pulse Rate 72 05/02/25 16:41 Respiratory Rate 16 05/02/25 16:41 Blood Pressure 138/71 05/02/25 16:41 Pulse Oximetry 100 05/02/25 16:41 Temperature 97.9 F 05/03/25 00:00 Pulse Rate 64 05/03/25 00:00 Respiratory Rate 18 05/03/25 00:00 Blood Pressure 96/54 L 05/03/25 00:00 Pulse Oximetry 99 05/03/25 00:00 Oxygen Delivery Room Air 05/02/25 21:55 <Karan Guerrero MD - Last Filed: 05/02/25 18:36> Vital Signs Temperature 97.9 F 05/02/25 16:41 Pulse Rate 72 05/02/25 16:41 Respiratory Rate 16 05/02/25 16:41 Blood Pressure 138/71 05/02/25 16:41 Pulse Oximetry 100 05/02/25 16:41 Temperature 97.9 F 05/03/25 00:00 Pulse Rate 64 05/03/25 00:00 Respiratory Rate 18 05/03/25 00:00 Blood Pressure 96/54 L 05/03/25 00:00 Pulse Oximetry 99 05/03/25 00:00 Oxygen Delivery Room Air 05/02/25 21:55 <Vicki Jones MD - Last Filed: 05/03/25 01:28> Lab Data Result diagrams: 05/02/25 18:07 05/02/25 18:07 <Karan Guerrero MD - Last Filed: 05/02/25 18:36> Labs: Lab Results 05/02/25 05/02/25 Range/Units 18:06 18:07 WBC 5.9 (4.5-10.0) K/mm3 RBC 4.24 (4.2-5.4) M/mm3 Hgb 12.7 (12.0-15.0) g/dL Hct 37.9 (37.0-47.0) % MCV 89.4 (80-100) fl MCH 30.0 (26-34) pg MCHC 33.5 (32-36) g/dl RDW 12.3 (11.5-14.5) % Plt Count 261 (150-375) k/mm3 MPV 9.6 (7.4-10.4) fl Immature Gran % (Auto) 0.3 (0-0.5) % Neut % (Auto) 73.9 H (45.5-73.1) % Lymph % (Auto) 17.3 L (18.3-44.2) % Forrest % (Auto) 7.1 (2.6-8.5) % Eos % (Auto) 0.9 (0-4.4) % Baso % (Auto) 0.5 (0.2-1.2) % Lymph # (Auto) 1.02 (0.9-3.2) K/mm3 Forrest # (Auto) 0.4 (0.1-0.6) K/mm3 Eos # (Auto) 0.1 (0-0.3) K/mm3 Baso # (Auto) 0.0 (0.0-0.1) K/mm3 Abs Immat Gran (auto) 0.02 (0.00-0.031) K/mm3 Absolute Neuts (auto) 4.3 (1.3-6.7) K/mm3 Absolute Nucleated RBC 0.000 (0.0-0.012) K/mm3 Nucleated RBC % 0.0 (0.0-0.2) % Sodium 126 L (137-145) mmol/L Potassium 3.2 L (3.4-5.0) mmol/L Chloride 87 L (98-107) mmol/L Carbon Dioxide 28 (22-30) mmol/L Anion Gap 11 (4-12) mmol/L BUN 11 (7-17) mg/dL Creatinine 0.60 L (0.7-1.0) mg/dL Estim Creat Clear Calc 72 ml/min Estimated GFR > 60 (59 - ) Glucose 104 (65-110) mg/dL Calcium 8.7 (8.4-10.2) mg/dL Magnesium 1.8 (1.6-2.3) mg/dL Total Bilirubin 1.0 (0.2-1.3) mg/dL AST 33 (14-36) U/L ALT 20 (6-35) U/L Alkaline Phosphatase 87 (38-126) U/L Total Protein 8.3 H (6.3-8.2) g/dL Albumin 4.2 (3.5-5.1) g/dL Lipase 25 (23-300) U/L Urine Color Dark yellow (Yellow) Urine Appearance Clear (Clear) Urine pH 5.5 (5.0-9.0) Ur Specific [place] 1.023 (1.001-1.035) Urine Protein 1+ H (Negative) mg/dL Urine Glucose (UA) Negative (Negative) mg/dL Urine Ketones 4+ H (Negative) mg/dL Ur Blood (Man) Trace (Negative) Urine Nitrate Negative (Negative) Urine Bilirubin Negative (Negative) Urine Urobilinogen 1.0 (<2.0) mg/dL Add Ur Microanalysis Reviewed Leukocyte Esterase Rfl 1+ H (Negative) DEMARIO/UL Urine RBC 6-10 H (0-2) /hpf Urine WBC 6-10 H (0-3) /hpf Ur Squamous Epith Cells Many H (Few) /hpf Urine Bacteria None seen /hpf Urine Casts 0-2 <Karan Guerrero MD - Last Filed: 05/02/25 18:36> Lab Results 05/02/25 05/02/25 Range/Units 18:06 18:07 WBC 5.9 (4.5-10.0) K/mm3 RBC 4.24 (4.2-5.4) M/mm3 Hgb 12.7 (12.0-15.0) g/dL Hct 37.9 (37.0-47.0) % MCV 89.4 (80-100) fl MCH 30.0 (26-34) pg MCHC 33.5 (32-36) g/dl RDW 12.3 (11.5-14.5) % Plt Count 261 (150-375) k/mm3 MPV 9.6 (7.4-10.4) fl Immature Gran % (Auto) 0.3 (0-0.5) % Neut % (Auto) 73.9 H (45.5-73.1) % Lymph % (Auto) 17.3 L (18.3-44.2) % Forrest % (Auto) 7.1 (2.6-8.5) % Eos % (Auto) 0.9 (0-4.4) % Baso % (Auto) 0.5 (0.2-1.2) % Lymph # (Auto) 1.02 (0.9-3.2) K/mm3 Forrest # (Auto) 0.4 (0.1-0.6) K/mm3 Eos # (Auto) 0.1 (0-0.3) K/mm3 Baso # (Auto) 0.0 (0.0-0.1) K/mm3 Abs Immat Gran (auto) 0.02 (0.00-0.031) K/mm3 Absolute Neuts (auto) 4.3 (1.3-6.7) K/mm3 Absolute Nucleated RBC 0.000 (0.0-0.012) K/mm3 Nucleated RBC % 0.0 (0.0-0.2) % Sodium 126 L (137-145) mmol/L Potassium 3.2 L (3.4-5.0) mmol/L Chloride 87 L (98-107) mmol/L Carbon Dioxide 28 (22-30) mmol/L Anion Gap 11 (4-12) mmol/L BUN 11 (7-17) mg/dL Creatinine 0.60 L (0.7-1.0) mg/dL Estim Creat Clear Calc 72 ml/min Estimated GFR > 60 (59 - ) Glucose 104 (65-110) mg/dL Calcium 8.7 (8.4-10.2) mg/dL Magnesium 1.8 (1.6-2.3) mg/dL Total Bilirubin 1.0 (0.2-1.3) mg/dL AST 33 (14-36) U/L ALT 20 (6-35) U/L Alkaline Phosphatase 87 (38-126) U/L Total Protein 8.3 H (6.3-8.2) g/dL Albumin 4.2 (3.5-5.1) g/dL Lipase 25 (23-300) U/L Urine Color Dark yellow (Yellow) Urine Appearance Clear (Clear) Urine pH 5.5 (5.0-9.0) Ur Specific [place] 1.023 (1.001-1.035) Urine Protein 1+ H (Negative) mg/dL Urine Glucose (UA) Negative (Negative) mg/dL Urine Ketones 4+ H (Negative) mg/dL Ur Blood (Man) Trace (Negative) Urine Nitrate Negative (Negative) Urine Bilirubin Negative (Negative) Urine Urobilinogen 1.0 (<2.0) mg/dL Add Ur Microanalysis Reviewed Leukocyte Esterase Rfl 1+ H (Negative) DEMARIO/UL Urine RBC 6-10 H (0-2) /hpf Urine WBC 6-10 H (0-3) /hpf Ur Squamous Epith Cells Many H (Few) /hpf Urine Bacteria None seen /hpf Urine Casts 0-2 <Vicki Jones MD - Last Filed: 05/03/25 01:28> Discharge Plan Discharge Clinical Impression: Nausea & vomiting, Acute hyponatremia <Karan Guerrero MD - Last Filed: 05/02/25 18:36> Patient Disposition: Still a Patient <Karan Guerrero MD - Last Filed: 05/02/25 18:36> Condition: Stable <Karan Guerrero MD - Last Filed: 05/02/25 18:36> Time of Disposition: 18:36 <Karan Guerrero MD - Last Filed: 05/02/25 18:36> 18:36 <Vicki Jones MD - Last Filed: 05/03/25 01:28>
[2025-05-02 18:13] LABS: Hematocrit 37.9 % (37.0-47.0); Hemoglobin 12.7 g/dL (12.0-15.0); Immature Granulocyte Percent A 0.3 % (0-0.5); Lymphocytes Absolute Auto 1.02 K/mm3 (0.9-3.2); Mean Corpuscular HGB Conc 33.5 g/dl (32-36); Mean Corpuscular Hemoglobin 30.0 pg (26-34); Mean Corpuscular Volume 89.4 fl (80-100); Nucleated Red Blood Cells Absolute Auto 0.000 K/mm3 (0.0-0.012); Nucleated Red Blood Cells Perc 0.0 % (0.0-0.2); Platelet Count Result 261 k/mm3 (150-375); Red Blood Count 4.24 M/mm3 (4.2-5.4); White Blood Count 5.9 K/mm3 (4.5-10.0)
[2025-05-02] MEDS: SODIUM CHLORIDE 0.9% IV 1,000 ML 999 ML IV CONT ×2 (18:14→19:19)
[2025-05-02] MEDS: ONDANSETRON INJ 4 MG/2 ML VIAL IV PUSH (18:14)
[2025-05-02 18:24] LABS: Add Urine Microscopic? YES; Alanine Aminotransferase 20 U/L (6-35); Albumin Level 4.2 g/dL (3.5-5.1); Alkaline Phosphatase 87 U/L (38-126); Anion Gap 11 mmol/L (4-12); Appearance Urine Clear (Clear); Aspartate Amino Transferase 33 U/L (14-36); Bilirubin,Total 1.0 mg/dL (0.2-1.3); Blood Urea Nitrogen 11 mg/dL (7-17); Calcium 8.7 mg/dL (8.4-10.2); Carbon Dioxide 28 mmol/L (22-30); Chloride 87 mmol/L (98-107); Estimated CRCL calculation 72 ml/min; Estimated Glomerular Filt Rate > 60; Glucose 104 mg/dL (65-110); Glucose Urine UA Negative (Negative); Leukocyte Esterase Ur 1+ LEU/UL (Negative); Lipase 25 U/L (23-300); Need Manual Microscopic Reviewed; Nitrate Urine Negative (Negative); Non Pathogenic Casts 0-2; Potassium 3.2 mmol/L (3.4-5.0); Sodium 126 mmol/L (137-145); Specific Grav Ur 1.023 (1.001-1.035); Total Protein 8.3 g/dL (6.3-8.2)
[2025-05-02 18:50] LABS: Magnesium 1.8 mg/dL (1.6-2.3)
[2025-05-02] MEDS: KCL 20 MEQ/SW 100 ML 100 ML 50 MEQ IVPB (19:20)
[2025-05-02] MEDS: PIPERACILLIN/TAZOBACTAM SOD 3.375 GM in SODIUM CHLORIDE 0.9% IV 50 ML 100 ML IVPB (19:44)
--- NOTE | 2025-05-02 20:07 | P.HP_ITS ---
H&P: HPI History of Present Illness Date/Time: 05/02/25 20:07 Chief Complaint: N/V Narrative: This is a very pleasant 60 year old female pt with PMH only of HTN who comes to the ER for the second time this week with complaints of having persistent LLQ abdominal pain, N/V/D. She was evaluated on 04/30/25 and was told she had Diverticulitis, and was discharged home on Cipro and Flagyl. She has been compliant with taking those, but states her Vomiting is worse today and she has been unable to keep anything down. She represented to the ER and workup was repeated. In ER pt's workup consisted of labs and imaging. Labs with normal CBC and CMP with noted Sodium of 126 and Potassium of 3.2. Magnesium and lipase were normal and urine showed 4+ Ketones 1+ Leuk esterase and 6-10 WBCs. There were many epithelials. Repeat CT Scan of abdomen and pelvis was performed that showed an abnormal thickening of the left colon including the descending, sigmoid colon and rectum with thickening most prominent in the sigmoid colon with mild surrounding phlegmonous change suspicious for coliitis, most likely infectious/inflammatory. She received 2L of IVF, 20 mEq KCL and IV Zosyn. She is being admitted in the current setting for continued hydration and symptom management. She had her last Colonoscopy 10 years ago and it was normal. She is due for her next in December 2025. Review of Systems Review of Systems: All systems reviewed & are unremarkable except as noted in HPI and below PMFSH Past Medical History Medical History (Updated 05/02/25 @ 20:26 by ELLA Bean) Dehydration Colitis HTN (hypertension) Family History Family History Mother Family history of coronary artery disease Social History Social History Smoking packs per day: 0 Smoking cigarettes per day: 0.0 Years smoked: 30 Smoking pack-years: 0.00 Smoking status: Former smoker Tobacco type: cigarettes Smoking end date: 03/16/20 Alcohol intake: never Substance use: never Substance use type: does not use Living arrangements: with family Spiritual care concerns: No Meds Home Medications and Allergies Home Medications ?Medication ?Instructions ?Recorded ?Confirmed ?Type ospemifene 60 mg tablet (Osphena) 60 mg PO DAILY 09/1504/30/25 History Calcium 600 2 tab-cap PO BID 01/11/24 History Vitamin D3 2 tab-cap PO DAILY 01/11/24 04/30/25 History lisinopril 10 See Rx Instructions .Route 0 09/26/24 04/30/25 Rx mg-hydrochlorothiazide 12.5 mg .COMPLEX #90 tabs tablet omeprazole 40 mg capsule,delayed See Rx Instructions . Route 12/26/24 04/30/25 Rx release .COMPLEX #90 caps ciprofloxacin HCl 500 mg tablet 500 mg PO Q12H #14 tab s 04/30/25 04/30/25 Rx metronidazole 500 mg tablet 500 mg PO Q8H #21 tabs 04/30/25 Rx Allergies Allergy/AdvReac Type Severity Reaction Status Date / Time escitalopram AdvReac Unknown Abdominal Verified 04/30/25 11:23 Pain Dairy AdvReac Severe DIARRHEA Uncoded 04/30/25 11:23 Vital Signs Vital Signs - 24 hr 05/02/25 16:41 05/02/25 18:12 Temperature 97.9 F Pulse Rate 72 66 Respiratory Rate 16 14 Blood Pressure 138/71 120/77 Pulse Oximetry 100 100 Exam Const: General: uncomfortable Other: Acutely ill female in no acute distress. HENMT: Mouth: Yes moist mucous membranes Eyes: General: appearance normal, both eyes and all related structures Neck: Neck: supple and no JVD Lymphatic: lymphadenopathy not noted Resp: Effort & Inspection: normal respiratory effort Auscultation: clear to auscultation bilaterally Cardio: Rate: regular rate Rhythm: regular rhythm Heart sounds: no gallops, no murmurs and no rubs GI: GI Palp: Yes Soft to palpation and Yes Tenderness to palpation present (GI) (LLQ) Auscultation: normal bowel sounds Skin: General skin exam: normal color and no rashes or lesions noted Lesions: no lesions noted Rashes: no rashes noted Wounds: no wounds Neuro: Speech: normal speech Motor exam (neuro): 5/5 motor strength present throughout and Normal motor muscle tone present throughout Sensory Exam: normal sensation Extrem: General: normal to inspection, no edema and no pedal edema Psych: Mental Status: mental status grossly normal Affect: normal affect H&P: Results Labs Labs: Short CBC 05/02/25 Range/Units 18:07 WBC 5.9 (4.5-10.0) K/mm3 Hgb 12.7 (12.0-15.0) g/dL Hct 37.9 (37.0-47.0) % Plt Count 261 (150-375) k/mm3 BMP 05/02/25 18:07 Sodium 126 L Potassium 3.2 L Chloride 87 L Carbon Dioxide 28 BUN 11 Creatinine 0.60 L Glucose 104 Calcium 8.7 Liver Function 05/02/25 Range/Units 18:07 Total Bilirubin 1.0 (0.2-1.3) mg/dL AST 33 (14-36) U/L ALT 20 (6-35) U/L Alkaline Phosphatase 87 (38-126) U/L Albumin 4.2 (3.5-5.1) g/dL Urine 05/02/25 Range/Units 18:07 Urine Color Dark yellow (Yellow) Urine Appearance Clear (Clear) Urine pH 5.5 (5.0-9.0) Ur Specific [place] 1.023 (1.001-1.035) Urine Protein 1+ H (Negative) mg/dL Urine Glucose (UA) Negative (Negative) mg/dL Assessment and Plan Assessment and plan (1) Colitis: Code(s): K52.9 - Noninfective gastroenteritis and colitis, unspecified Status: Acute Assessment and Plan: * Continue Zosyn for abx coverage. * As evidenced by CT scan and independently reviewed by myself. * Continue IV Hydration with NS at 100 ml/hr * Trend and follow daily labs and trend VS * PRN zofran 4 mg IVP Q6 hrs nausea * PRN Morphine 4 mg IVP Q6 hrs pain * Consult GI (2) Dehydration: Code(s): E86.0 - Dehydration Status: Acute Assessment and Plan: * Secondary to Colitis in #1 * Continue IV Hydration as noted above * Trend labs (3) HTN (hypertension): Code(s): I10 - Essential (primary) hypertension Status: Chronic Assessment and Plan: * Currently stable at 120/77 * Continue home meds once they have been confirmed. Quality VTE Prophylaxis VTE prophylaxis: mechanical ordered Hospitalist MIPS Advance Care Plan I have confirmed that the patient's Advanced Care Plan is present, code status is documented, or surrogate decision maker is listed in patient medical record.: Yes Medication Reconciliation I have utilized all available resources to obtain, update and review the patients current medications (includes all prescriptions, OTC, herbals, cannabis, and nutritional supplements).: Yes
[2025-05-02] MEDS: SODIUM CHLORIDE 0.9% IV 1,000 ML 100 ML IV CONT (21:35)
[2025-05-03] VITALS (7 sets, daily range): BP systolic 90–108; BP diastolic 49–67; PULSE 59–68; RESP 18; TEMP 36.4–36.9; O2SAT 98–100
[2025-05-03] MEDS: PIPERACILLIN/TAZOBACTAM SOD 3.375 GM in SODIUM CHLORIDE 0.9% IV 50 ML 100 ML IVPB ×4 (01:59→17:37)
[2025-05-03 06:11] LABS: Hematocrit 34.4 % (37.0-47.0); Hemoglobin 11.0 g/dL (12.0-15.0); Immature Granulocyte Percent A 0.5 % (0-0.5); Lymphocytes Absolute Auto 1.34 K/mm3 (0.9-3.2); Mean Corpuscular HGB Conc 32.0 g/dl (32-36); Mean Corpuscular Hemoglobin 29.8 pg (26-34); Mean Corpuscular Volume 93.2 fl (80-100); Nucleated Red Blood Cells Absolute Auto 0.000 K/mm3 (0.0-0.012); Nucleated Red Blood Cells Perc 0.0 % (0.0-0.2); Platelet Count Result 230 k/mm3 (150-375); Red Blood Count 3.69 M/mm3 (4.2-5.4); White Blood Count 4.3 K/mm3 (4.5-10.0)
[2025-05-03 06:34] LABS: Alanine Aminotransferase 12 U/L (6-35); Albumin Level 3.1 g/dL (3.5-5.1); Alkaline Phosphatase 69 U/L (38-126); Anion Gap 8 mmol/L (4-12); Aspartate Amino Transferase 26 U/L (14-36); Bilirubin,Total 0.5 mg/dL (0.2-1.3); Blood Urea Nitrogen 6 mg/dL (7-17); Calcium 7.9 mg/dL (8.4-10.2); Carbon Dioxide 24 mmol/L (22-30); Chloride 104 mmol/L (98-107); Estimated CRCL calculation 64 ml/min; Estimated Glomerular Filt Rate > 60; Glucose 77 mg/dL (65-110); Lipase 32 U/L (23-300); Magnesium 1.9 mg/dL (1.6-2.3); Potassium 3.0 mmol/L (3.4-5.0); Sodium 136 mmol/L (137-145); Total Protein 6.3 g/dL (6.3-8.2)
--- NOTE | 2025-05-03 08:01 | P.PNIM_ITS ---
Progress Note: A&P Assessment and Plan (1) Colitis: Code(s): K52.9 - Noninfective gastroenteritis and colitis, unspecified Status: Acute Assessment and Plan: - CT A/P: Abnormal thickening of the left colon including the descending, sigmoid colon and rectum with thickening most prominent in the sigmoid colon. There is mild surrounding phlegmonous change. Findings suspicious for colitis, most likely infectious/inflammatory. Differential diagnosis includes diverticulitis and colon carcinoma, although these are less favored. -Continue Zosyn for abx coverage. -Continue IV Hydration with NS at 100 ml/hr -Trend and follow daily labs and trend VS -PRN zofran 4 mg IVP Q6 hrs nausea -PRN Morphine 4 mg IVP Q6 hrs pain - Consult GI - symptoms improved today (2) Dehydration: Code(s): E86.0 - Dehydration Status: Acute Assessment and Plan: -Secondary to Colitis in #1 -Continue IV Hydration as noted above - trend labs (3) Hypokalemia: Code(s): E87.6 - Hypokalemia Status: Acute Assessment and Plan: - K+ 3.0 - IV replacement ordered - recheck BMP in AM (4) HTN (hypertension): Code(s): I10 - Essential (primary) hypertension Status: Chronic Assessment and Plan: -Currently stable at 120/77 -Continue home meds once they have been confirmed. Subjective Date/time seen: 05/03/25 08:01 Interval history: 60 year old female pt with PMH only of HTN who comes to the ER for the second time this week with complaints of having persistent LLQ abdominal pain, N/V/D. Patient seen and examined at bedside. Feeling much better. Denies pain or nausea/vomiting. Tolerating regular diet. Review of Systems Review of Systems: All systems reviewed & are unremarkable except as noted in HPI and below Exam Narrative: General: NAD Eyes: EOMI ENT: neck supple Cardiovascular: Regular rate and rhythm Respiratory: Clear to auscultation, respirations even and unlabored on RA Gastrointestinal: Soft, non tender Genitourinary: no suprapubic tenderness Musculoskeletal: No edema Skin: warm, dry Neuro: Alert. Psych: Mood appropriate Objective Data Vital Signs Vital Signs: Vital Signs - 24 hr 05/02/25 16:41 05/02/25 17:36 05/02/25 18:12 Temperature 97.9 F 98.1 F Pulse Rate 72 100 66 Respiratory Rate 16 18 14 Blood Pressure 138/71 115/62 120/77 Pulse Oximetry 100 100 100 Oxygen Delivery 05/02/25 18:13 05/02/25 18:15 05/02/25 18:16 Temperature Pulse Rate Respiratory Rate Blood Pressure 122/73 Pulse Oximetry 100 100 100 Oxygen Delivery 05/02/25 18:30 05/02/25 19:00 05/02/25 19:01 Temperature Pulse Rate Respiratory Rate Blood Pressure 121/78 Pulse Oximetry 100 100 100 Oxygen Delivery 05/02/25 19:15 05/02/25 19:30 05/02/25 19:50 Temperature Pulse Rate Respiratory Rate Blood Pressure Pulse Oximetry 100 100 100 Oxygen Delivery 05/02/25 19:52 05/02/25 20:00 05/02/25 20:01 Temperature Pulse Rate Respiratory Rate Blood Pressure 109/77 113/65 Pulse Oximetry 100 99 99 Oxygen Delivery 05/02/25 20:15 05/02/25 20:30 05/02/25 21:55 Temperature Pulse Rate Respiratory Rate Blood Pressure Pulse Oximetry 98 98 Oxygen Delivery Room Air 05/03/25 00:00 05/03/25 02:15 05/03/25 04:00 Temperature 97.9 F 98.4 F Pulse Rate 64 61 61 Respiratory Rate 18 18 18 Blood Pressure 96/54 L 95/64 L 90/49 L Pulse Oximetry 99 100 98 Oxygen Delivery 05/03/25 04:16 Temperature Pulse Rate Respiratory Rate Blood Pressure 95/58 L Pulse Oximetry Oxygen Delivery Intake/Output Intake/Output: Intake & Output 04/30/25 05/01/25 05/02/25 05/03/25 23:59 23:59 23:59 23:59 Intake Total 1050 50 Balance 1050 50 Meds/Results Medications: Active Medications Generic Name Dose Route Start Last Admin Trade Name Freq PRN Reason Stop Dose Admin Piperacillin Sod/Tazobactam 50 mls @ 100 mls/hr 05/03/25 01:00 05/03/25 05:39 Sod 3.375 gm/ Sodium Chloride IVPB 100 mls/hr Q6HR MATA Administration Sodium Chloride 1,000 mls @ 100 mls/hr 05/02/25 20:30 05/02/25 21:35 Normal Saline Iv IV CONT 100 mls/hr .Q10H MATA Administration Morphine Sulfate 4 mg 05/02/25 20:28 Morphine Sulfate (*Crx) 4 Mg/Ml Inj IV PUSH Q6HR PRN Pain Rated 7-10 Radiology Results: ITS Impressions Abdomen/Pelvis CT 05/02/25 19:08 IMPRESSION: 1. Abnormal thickening of the left colon including the descending, sigmoid colon and rectum with thickening most prominent in the sigmoid colon. There is mild surrounding phlegmonous change. Findings suspicious for colitis, most likely infectious/inflammatory. Differential diagnosis includes diverticulitis and colon carcinoma, although these are less favored. Labs Labs: Laboratory Results - last 24 hr 05/02/25 05/02/25 05/03/25 18:06 18:07 05:36 WBC 5.9 4.3 L RBC 4.24 3.69 L Hgb 12.7 11.0 L Hct 37.9 34.4 L MCV 89.4 93.2 MCH 30.0 29.8 MCHC 33.5 32.0 RDW 12.3 12.4 Plt Count 261 230 MPV 9.6 10.1 Immature Gran % (Auto) 0.3 0.5 Neut % (Auto) 73.9 H 57.3 Lymph % (Auto) 17.3 L 30.9 [place] % (Auto) 7.1 8.5 Eos % (Auto) 0.9 2.3 Baso % (Auto) 0.5 0.5 Lymph # (Auto) 1.02 1.34 [place] # (Auto) 0.4 0.4 Eos # (Auto) 0.1 0.1 Baso # (Auto) 0.0 0.0 Abs Immat Gran (auto) 0.02 0.02 Absolute Neuts (auto) 4.3 2.5 Absolute Nucleated RBC 0.000 0.000 Nucleated RBC % 0.0 0.0 Sodium 126 L 136 L Potassium 3.2 L 3.0 L Chloride 87 L 104 Carbon Dioxide 28 24 Anion Gap 11 8 BUN 11 6 L D Creatinine 0.60 L 0.68 L Estim Creat Clear Calc 72 64 Estimated GFR > 60 > 60 Glucose 104 77 Calcium 8.7 7.9 L Magnesium 1.8 1.9 Total Bilirubin 1.0 0.5 AST 33 26 ALT 20 12 Alkaline Phosphatase 87 69 Total Protein 8.3 H 6.3 Albumin 4.2 3.1 L Lipase 25 32 Urine Color Dark yellow Urine Appearance Clear Urine pH 5.5 Ur Specific [place] 1.023 Urine Protein 1+ H Urine Glucose (UA) Negative Urine Ketones 4+ H Ur Blood (Man) Trace Urine Nitrate Negative Urine Bilirubin Negative Urine Urobilinogen 1.0 Add Ur Microanalysis Reviewed Leukocyte Esterase Rfl 1+ H Urine RBC 6-10 H Urine WBC 6-10 H Ur Squamous Epith Cells Many H Urine Bacteria None seen Urine Casts 0-2 Quality If No VTE Prophylaxis Answer both mechanical and pharmacologic: Reason no mechanical VTE proph: low risk/not indicated
[2025-05-03] MEDS: SODIUM CHLORIDE 0.9% IV 1,000 ML 100 ML IV CONT (09:52)
[2025-05-03] MEDS: POTASSIUM CHLORIDE INJ 40 MEQ in SODIUM CHLORIDE 0.9% IV 500 ML 130 MEQ IVPB (12:52)
[2025-05-04] MEDS: SODIUM CHLORIDE 0.9% IV 1,000 ML 100 ML IV CONT (00:27)
[2025-05-04] MEDS: PIPERACILLIN/TAZOBACTAM SOD 3.375 GM in SODIUM CHLORIDE 0.9% IV 50 ML 100 ML IVPB ×2 (00:28→05:35)
[2025-05-04 05:17] VITALS: BP 130/62; PULSE 100; RESP 20; TEMP 36.6; O2SAT 60
[2025-05-04 06:15] LABS: Hematocrit 32.2 % (37.0-47.0); Hemoglobin 10.3 g/dL (12.0-15.0); Immature Granulocyte Percent A 0.3 % (0-0.5); Lymphocytes Absolute Auto 1.53 K/mm3 (0.9-3.2); Mean Corpuscular HGB Conc 32.0 g/dl (32-36); Mean Corpuscular Hemoglobin 29.7 pg (26-34); Mean Corpuscular Volume 92.8 fl (80-100); Nucleated Red Blood Cells Absolute Auto 0.000 K/mm3 (0.0-0.012); Nucleated Red Blood Cells Perc 0.0 % (0.0-0.2); Platelet Count Result 228 k/mm3 (150-375); Red Blood Count 3.47 M/mm3 (4.2-5.4); White Blood Count 3.6 K/mm3 (4.5-10.0)
[2025-05-04 07:05] LABS: Anion Gap 4 mmol/L (4-12); Blood Urea Nitrogen 5 mg/dL (7-17); Calcium 7.8 mg/dL (8.4-10.2); Carbon Dioxide 26 mmol/L (22-30); Chloride 107 mmol/L (98-107); Estimated CRCL calculation 73 ml/min; Estimated Glomerular Filt Rate > 60; Glucose 89 mg/dL (65-110); Magnesium 1.9 mg/dL (1.6-2.3); Potassium 3.5 mmol/L (3.4-5.0); Sodium 137 mmol/L (137-145)
[2025-05-04 07:15] VITALS: PULSE 60; O2SAT 100
--- NOTE | 2025-05-04 08:26 | WPDGICN ---
Assessment and Plan Assessment and plan (1) Colitis: Code(s): K52.9 - Noninfective gastroenteritis and colitis, unspecified Status: Acute (2) Nausea & vomiting: Qualifiers: Vomiting type: bilious vomiting Qualified Code(s): R11.14 - Bilious vomiting Code(s): R11.2 - Nausea with vomiting, unspecified Status: Acute (3) GERD (gastroesophageal reflux disease): Qualifiers: Esophagitis presence: esophagitis presence not specified Qualified Code(s): K21.9 - Gastro-esophageal reflux disease without esophagitis Code(s): K21.9 - Gastro-esophageal reflux disease without esophagitis Status: Acute (4) LLQ pain: Code(s): R10.32 - Left lower quadrant pain Status: Acute Plan 1. Colitis/nausea/vomiting/LLQ pain: Last colonoscopy 12/16/2015 revealed non bleeding internal hemorrhoids and diverticulosis, 10 year repeat was recommended. CT 04/30/2025 showed A 6 cm focus of mural thickening with surrounding inflammatory change is identified within the rectosigmoid colon. Scattered diverticula are identified within the colon, with 1-2 diverticulum just proximal to this area. Patient was started on a course of Cipro/Flagyl but only completed 2 days prior to her admission and she states that the antibiotics were causing GI upset. Repeat CT on admission showed abnormal thickening of the left colon including the descending, sigmoid colon and rectum with thickening most prominent in the sigmoid colon. There is mild surrounding phlegmonous change. Findings suspicious for colitis, most likely infectious/inflammatory. Prior to admission the patient was having left lower quadrant pain that would become more severe during bowel movements and resolves after bowel movements. Since admission her abdominal pain, nausea and vomiting has resolved. Bowel movement today was more formed. Continue antibiotics and will need to continue antibiotics outpatient for a total of 10 days Continue supportive care with pain management and antiemetics Patient will follow-up in the office outpatient after discharge at which time we will discuss scheduling a colonoscopy to document mucosal healing No plan for endoscopic evaluation this admission 2. Leukopenia: Labs today showed WBC is 4. HGB 10, HCT 32, MCV 93 and platelets 228. Prior care team to continue monitoring 3. GERD: Patient has never had an EGD. Prior to admission she was on omeprazole 40 mg daily and states that her reflux is well controlled. Given longstanding history of reflux will discuss EGD at follow-up visit Continue PPI Thank you very much for allowing me to share in the care of this very nice patient. This report may have been done utilizing a voice recognition system. Attempts have been made to correct errors. However, there may be uncorrected grammatical, spelling, and recognition errors present. GI Consult Note Consult date/time: 05/04/25 08:26 Reason for consult: Colitis HPI: Sunitha Herron is a 60 year old female with PMSH of HTN, HLD, diverticulitis, cholecystectomy, partial hysterectomy and GERD. She presented to the ER 05/02/2025 with complaints of nausea and vomiting. GI has been consulted for colitis. Patient was seen with her Chidi throughout the entire visit. Patient was recently seen by her PCP 04/30/2025 for nausea, vomiting, diarrhea and LLQ pain and was diagnosed and treated for diverticulitis with a course of Cipro/Flagyl which she took for 2 days but states that the antibiotics were causing GI upset. Prior to admission she was having left lower quadrant abdominal pain that will become more severe during bowel movements and resolves after bowel movements. She denies any abdominal pain since admission. She denies any further episodes of nausea or vomiting since admission. Prior to admission she was on omeprazole 40 mg daily and reflux was well controlled. Prior to admission the patient was having loose to liquid bowel movements with increased frequency but denied any fecal incontinence, hematochezia or melena. She states she had a bowel movement today that was loose but more formed. She denies any odynophagia, dysphagia, regurgitation, early satiety, unexplained weight loss, appetite loss or constipation. She denies any NSAID, aspirin, or anticoagulant use. She denies any alcohol, tobacco, or marijuana use. Family history negative for CRC or IBD. ENDOSCOPY HISTORY: EGD: Patient has never had an EGD COLONOSCOPY: 12/16/[address] Garner for CRC screening Findings: non bleeding internal hemorrhoids noted and diverticulosis 10 year repeat colonoscopy recommended LABS AND STOOL STUDIES: Labs 05/04/2025: Sodium 137, potassium 3.5, BUN 5, creatinine 0.59, GFR >60, calcium 7.8, lactic acid 0.8, magnesium 1.9 WBC 4, Hgb 10, Hct 32, MCV 93, platelets 228 Total bilirubin 0.5, AST 26, ALT 12, Alkaline Phos 69, albumin 3.1, lipase 32 IMAGING: CT abd/pelvis w/contrast 05/02/2025: IMPRESSION: 1. Abnormal thickening of the left colon including the descending, sigmoid colon and rectum with thickening most prominent in the sigmoid colon. There is mild surrounding phlegmonous change. Findings suspicious for colitis, most likely infectious/inflammatory. Differential diagnosis includes diverticulitis and colon carcinoma, although these are less favored. CT abd/pelvis w/contrast 04/30/2025: IMPRESSION: A 6 cm focus of mural thickening with surrounding inflammatory change is identified within the rectosigmoid colon. Scattered diverticula are identified within the colon, with 1-2 diverticulum just proximal to this area. While this may represent acute/early diverticulitis (in the appropriate clinical setting) a malignancy has a similar appearance for which follow-up to resolution is recommended. Review of Systems Constitutional: Constitutional: Reports as per HPI ENT: Reports as per HPI Cardiovascular: Cardiovascular: Reports as per HPI, Denies chest pain and Denies dyspnea Respiratory: Respiratory: Denies cough and Denies dyspnea Gastrointestinal: Gastrointestinal: Reports as per HPI Musculoskeletal: Musculoskeletal: Reports as per HPI Integumentary/Breasts: Skin/Breast: Reports as per HPI Psychiatric: Psychiatric: Reports as per HPI Endocrine: Endocrine: Reports no additional endocrine complaints Hematologic/Lymphatic: Hematologic/Lymphatic: Reports no additional hematologic/lymphatic complaints [facility] Past Medical History Medical History (Updated 05/04/25 @ 10:36 by Candace Irene APRN) Dehydration Colitis HTN (hypertension) Family History Family History Mother Family history of coronary artery disease Social History Social History Smoking packs per day: 0 Smoking cigarettes per day: 0.0 Years smoked: 30 Smoking pack-years: 0.00 Smoking status: Former smoker Tobacco type: cigarettes Second hand tobacco smoke exposure: Yes Smoking end date: 03/16/20 Alcohol intake: never Substance use: never Substance use type: does not use Lack of Transportation: No Lack of Food: Never True Current Housing: I Have Housing Concerned About Future Housing: No Difficulty Paying Gas/Electric Bills: No Difficulty Paying for Meds: No Currently Unemployed: No Education: High School Diploma/GED Difficulty w/ Childcare or Family Care: No Living arrangements: with family Spiritual care concerns: No Meds Home Medications and Allergies Home Medications ?Medication ?Instructions ?Recorded ?Confirmed ?Type ospemifene 60 mg tablet (Osphena) 60 mg PO DAILY 09/15/19 05/02/25 History Calcium 600 2 tab-cap PO BID 01/11/24 05/02/25 History Vitamin D3 2 tab-cap PO DAILY 01/11/24 05/02/25 History lisinopril 10 See Rx Instructions .Route 09/26/24 05/02/25 Rx mg-hydrochlorothiazide 12.5 mg .COMPLEX #90 tabs tablet omeprazole 40 mg capsule,delayed See Rx Instructions .Route 12/26/24 05/02/25 Rx release .COMPLEX #90 caps ciprofloxacin HCl 500 mg tablet 500 mg PO Q12H #14 tabs 04/30/25 05/02/25 Rx metronidazole 500 mg tablet 500 mg PO Q8H #21 tabs 04/30/25 05/02/25 Rx Allergies Allergy/AdvReac Type Severity Reaction Status Date / Time escitalopram AdvReac Unknown Abdominal Verified 04/30/25 11:23 Pain Dairy AdvReac Severe DIARRHEA Uncoded 04/30/25 11:23 Vital Signs Vital Signs - 24 hr 05/03/25 11:19 05/03/25 15:11 05/03/25 20:11 Temperature 98.3 F 98.4 F 97.6 F Pulse Rate 65 59 L 68 Respiratory Rate 18 18 18 Blood Pressure 108/67 97/64 L 101/63 Pulse Oximetry 100 100 100 05/04/25 05:17 Temperature 97.8 F Pulse Rate 100 Respiratory Rate 20 Blood Pressure 130/62 Pulse Oximetry 60 L Exam Const: General: cooperative, healthy appearing, comfortable, no acute distress and well developed Orientation/consciousness: oriented to person, oriented to place, oriented to time and patient oriented x3 HENMT: Head: normal to inspection, normocephalic and atraumatic Mouth: Yes Normal oral and palatal mucosa present and Yes moist mucous membranes Eyes: General: appearance normal, both eyes and all related structures Conjunctivae: conjunctivae normal Sclera: sclerae normal Pupils: Equal, round and reactive pupils present Neck: Neck: normal visual inspection Chest: Chest palpation & inspection: normal inspection of the chest Resp: Effort & Inspection: normal respiratory effort and able to speak in complete sentences Auscultation: clear to auscultation bilaterally Cardio: Jugular venous distension: no JVD Rate: regular rate Rhythm: regular rhythm Heart sounds: S1 normal heart sound present and S2 normal heart sound present GI: Inspection: normal to inspection GI Palp: Yes Soft to palpation and Yes No hepatosplenomegaly present Auscultation: normal bowel sounds Rectal Exam: deferred Skin: General skin exam: normal color and no rashes or lesions noted Neuro: General: oriented to person, oriented to place, oriented to time and patient oriented x3 Cranial nerves: Yes Equal, round and reactive pupils present Speech: normal speech Extrem: General: normal to inspection and no clubbing, cyanosis or edema Psych: Appearance: grossly normal and well kempt Affect: normal affect Results Labs 05/04/25 05:43 05/04/25 05:43 Labs: Short CBC 05/04/25 Range/Units 05:43 WBC 3.6 L (4.5-10.0) K/mm3 Hgb 10.3 L (12.0-15.0) g/dL Hct 32.2 L (37.0-47.0) % Plt Count 228 (150-375) k/mm3 [facility] 05/04/25 05:43 Sodium 137 Potassium 3.5 Chloride 107 Carbon Dioxide 26 BUN 5 L Creatinine 0.59 L Glucose 89 Calcium 7.8 L
[2025-05-04] MEDS: CALCIUM CARBONATE (OSCAL) 500 MG TABLET 1000 MG PO (09:50)
[2025-05-04] MEDS: PANTOPRAZOLE 40 MG TABLET PO (09:50)
--- NOTE | 2025-05-04 11:37 | P.DS_ITS ---
DS: Admitting Diagnosis Discharge Date 05/04/2025 Admitting Diagnosis - colitis/diverticulitis - nausea/vomiting - abdominal pain DS: Discharge Diagnosis Discharge Diagnosis (1) Colitis: Code(s): K52.9 - Noninfective gastroenteritis and colitis, unspecified Status: Acute (2) Dehydration: Code(s): E86.0 - Dehydration Status: Acute (3) Hypokalemia: Code(s): E87.6 - Hypokalemia Status: Acute (4) HTN (hypertension): Code(s): I10 - Essential (primary) hypertension Status: Chronic DS: Summary Hospital Course Reason for hospitalization: - colitis/diverticulitis - nausea/vomiting - abdominal pain Hospital Course: Patient is a 60-year-old female with past medical history of hypertension, GERD who presented to the emergency department with nausea/vomiting and persistent abdominal pain. Patient had seen her primary care provider a few days prior to admission and was diagnosed with diverticulitis. She was placed on ciprofloxacin and Flagyl however she began experiencing nausea/vomiting and increasing abdominal pain which led her to present to the emergency department. In the ED, labs with normal CBC and CMP with noted Sodium of 126 and Potassium of 3.2. Magnesium and lipase were normal and urine showed 4+ Ketones 1+ Leuk esterase and 6-10 WBCs. There were many epithelials. Repeat CT Scan of abdomen and pelvis was performed that showed an abnormal thickening of the left colon including the descending, sigmoid colon and rectum with thickening most prominent in the sigmoid colon with mild surrounding phlegmonous change suspicious for coliitis, most likely infectious/inflammatory. She was admitted for further management. Once admitted, patient received IV fluids, IV Zosyn and antiemetics/analgesics with prompt resolution of her symptoms. Her electrolyte abnormalities improved and she was tolerating a regular diet. GI was consulted and suspected symptoms were related to colitis vs. diverticulitis. Patient's symptoms of LLQ abdominal pain seemed more consistent with diverticulitis. GI recommended to continue Augmentin to complete a 10-day course. Patient had a normal bowel movement prior to discharge. She was encouraged to follow-up with GI to discuss outpatient colonoscopy. She will also have a repeat BMP and CBC in -7 as outpatient and follow-up with her PCP. Patient was discharged home in stable condition. Status at Discharge Functional status at discharge: independent ambulation Time Spent with Patient Time attestation: Total time spent providing and/or coordinating discharge services: Time spent: Greater than 30 minutes Exam Narrative: General: NAD Eyes: EOMI ENT: neck supple Cardiovascular: Regular rate and rhythm Respiratory: Clear to auscultation, respirations even and unlabored on RA Gastrointestinal: Soft, non tender Genitourinary: no suprapubic tenderness Musculoskeletal: No edema Skin: warm, dry Neuro: Alert. Psych: Mood appropriate DS: Data Data Completed and Pending Completed studies during hospitalization: ITS Impressions Abdomen/Pelvis CT 05/02/25 19:08 IMPRESSION: 1. Abnormal thickening of the left colon including the descending, sigmoid colon and rectum with thickening most prominent in the sigmoid colon. There is mild surrounding phlegmonous change. Findings suspicious for colitis, most likely infectious/inflammatory. Differential diagnosis includes diverticulitis and colon carcinoma, although these are less favored. Labs on day of discharge: Labs from last 24 hours 05/04/25 05:43 WBC 3.6 L RBC 3.47 L Hgb 10.3 L Hct 32.2 L MCV 92.8 MCH 29.7 MCHC 32.0 RDW 12.8 Plt Count 228 MPV 10.0 Immature Gran % (Auto) 0.3 Neut % (Auto) 44.2 L Lymph % (Auto) 42.3 [place] % (Auto) 8.0 Eos % (Auto) 4.4 Baso % (Auto) 0.8 Lymph # (Auto) 1.53 [place] # (Auto) 0.3 Eos # (Auto) 0.2 Baso # (Auto) 0.0 Abs Immat Gran (auto) 0.01 Absolute Neuts (auto) 1.6 Absolute Nucleated RBC 0.000 Nucleated RBC % 0.0 Sodium 137 Potassium 3.5 Chloride 107 Carbon Dioxide 26 Anion Gap 4 BUN 5 L Creatinine 0.59 L Estim Creat Clear Calc 73 Estimated GFR > 60 Glucose 89 Calcium 7.8 L Magnesium 1.9 Discharge Plan Discharge Attending physician on discharge: Emiliano Young Consulting providers: Roxanne Holden; Wale Abdullahi Discharging Clinician: Roxanne Holden Anticipated Discharge Date/Time: 05/04/25 11:29 Patient Disposition: Home Activity: as tolerated Diet: regular and other - see discharge instructions Discharge Instructions: Take all antibiotics as prescribed, even if you are feeling better. Follow-up with GI as described to discuss outpatient EGD/colonoscopy. Have your lab work repeated in 5-7 days. Follow-up with your primary care provider as scheduled. Check your blood pressure daily for the next several days and do not take your blood pressure medications if blood pressure is less than 110/60. Return to the emergency department if you develop recurrent severe abdominal pain, nausea/vomiting, chest pain, shortness of breath, loss of consciousness. Patient Instructions: Antibiotic Form, Diverticulitis (DC), Diverticulitis Diet (GEN) Patient Language: Irish Stand Alone Forms: General Discharge Information Follow-up/Referrals: Edmundo Jacobsen MD [Primary Care Provider, Family Practice] - Keep Reg. Scheduled Appt. Wale Abdullahi MD [Physician, Gastroenterology] - Call for Appointment Referral Note: Call for an appointment if you don't hear from office in 5-7 d ays. Call with any concerns Discharge Medications: New amoxicillin-pot clavulanate 875-125 mg tablet 1 tablet PO Q12H 7 Days Qty: 14 0RF Continued Calcium 600 600 mg 2 tab-cap PO BID Vitamin D3 1,000 units 2 tab-cap PO DAILY Osphena 60 mg tablet 60 mg PO DAILY lisinopril-hydrochlorothiazide 10-12.5 mg tablet See Rx Instructions .ROUTE .COMPLEX Qty: 90 2RF Dose Instruction: TAKE 1 TABLET BY MOUTH DAILY Rx Instructions: TAKE 1 TABLET BY MOUTH DAILY omeprazole 40 mg capsule,delayed release(DR/EC) See Rx Instructions .ROUTE .COMPLEX Qty: 90 1RF Dose Instruction: TAKE 1 CAPSULE BY MOUTH DAILY Rx Instructions: TAKE 1 CAPSULE BY MOUTH DAILY Discontinued ciprofloxacin HCl 500 mg tablet 500 mg PO Q12H Qty: 14 0RF metronidazole 500 mg tablet 500 mg PO Q8H Qty: 21 0RF Other Ambulatory Orders: Complete Blood Count with Diff (Routine) Timeframe: 5 Days Location: Determined by Patient Ordered By: Roxanne Holden Comprehensive Metabolic Panel (Routine) Timeframe: 5 Days Location: Determined by Patient Ordered By: Roxanne Holden Date of admission: 05/02/25 19:27 Primary Care Provider: Edmundo Jacobsen Admitting Provider: Emiliano Young Attending physician on admission: Emiliano Young Condition: Stable
== END 2025-05-04 12:30 | disposition home or self-care (01) | DRG 392 ==
LOC: ANHED 19:11 → ANH3MEDSUR 21:01
PROVIDERS: Emergency Medicine; Family Medicine; Nurse Practitioner Adult Health; Physician Assistant; Admitting Provider Internal Medicine; Emergency Provider Emergency Medicine; PCP Family Medicine; Visit Provider Internal Medicine
DX: K52.9 Noninfective gastroenteritis and colitis, unspecified (principal); E87.1 Hypo-osmolality and hyponatremia; E86.0 Dehydration; E87.6 Hypokalemia; I10 Essential (primary) hypertension; K21.9 Gastro-esophageal reflux disease without esophagitis; Z87.891 Personal history of nicotine dependence
CPT/HCPCS: 36415; 74177; 80048; 80053; 81001; 83605; 83690; 83735; 85025; 96361; 96365; 96367; 96375; 99285; A9270; J2405; J2543; J3480; J7030; J7040; Q9967

== ENCOUNTER 2025-06-28 00:34 | Day surgery (SDC) | payer BC, SELFPAY ==
[2025-06-21 15:17] VITALS: BMI 20.1
[2025-06-28 11:14] VITALS: BP 144/84; PULSE 90; RESP 18; TEMP 36.6; O2SAT 100
[2025-06-28] MEDS: LACTATED RINGERS 1,000 ML 150 ML IV CONT (11:26)
--- NOTE | 2025-06-28 11:27 | WPDANESEPPF ---
Anes - Initial Pre Proc Eval Procedure: Operation Date: 06/28/25 12:30 Proposed Procedures p Diagnostic Colonoscopy - Wale Abdullahi MD Date/Time: 06/28/25 11:27 Surgeon: Wale Abdullahi MD Pre Op Diagnosis: Diverticulitis of intestine, part unspecified, wit Patient Data Age: 60 Gender: F Height: 1.64 m Weight: 53.8 kg Last Vital Signs Temp 97.9 F 06/28/25 11:14 Pulse 90 06/28/25 11:14 Resp 18 06/28/25 11:14 BP 144/84 H 06/28/25 11:14 Pulse Ox 100 06/28/25 11:14 O2 Del Method Room Air 06/28/25 11:14 Allergies Allergy/AdvReac Type Severity Reaction Status Date / Time chocolate Allergy Intermediate Blurry Verified 06/28/25 11:12 Vision escitalopram AdvReac Unknown Abdominal Verified 06/28/25 11:12 Pain Dairy AdvReac Severe DIARRHEA Uncoded 05/08/25 09:03 Home Medications ?Medication ?Instructions ?Recorded ?Confirmed ?Type ospemifene 60 mg tablet (Osphena) 60 mg PO HS 09/15/19 06/28/25 History Calcium 600 2 tab-cap PO BID 01/11/24 06/21/25 History Vitamin D3 2 tab-cap PO DAILY 01/11/24 06/28/25 History lisinopril 10 See Rx Instructions .Route 06/27/25 06/28/25 Rx mg-hydrochlorothiazide 12.5 mg .COMPLEX #90 tabs tablet omeprazole 40 mg capsule,delayed See Rx Instructions .Route 06/27/25 06/28/25 Rx release .COMPLEX #90 caps Patient hx anesthesia problems: none Family hx anesthesia problems: none Results Review: All pre-operative results and documents have been reviewed as part of the pre-operative evaluation. [facility] Past Medical History Medical History Dehydration Colitis HTN (hypertension) Family History Family History Mother Family history of coronary artery disease Social History Social History Smoking packs per day: 0 Smoking cigarettes per day: 0.0 Years smoked: 30 Smoking pack-years: 0.00 Smoking status: Never smoker Tobacco type: cigarettes Second hand tobacco smoke exposure: Yes Smoking end date: 03/16/20 Alcohol intake: never Substance use: never Substance use type: does not use Lack of Transportation: No Lack of Food: Never True Current Housing: I Have Housing Concerned About Future Housing: No Difficulty Paying Gas/Electric Bills: No Difficulty Paying for Meds: No Currently Unemployed: No Education: High School Diploma/GED Difficulty w/ Childcare or Family Care: No Living arrangements: with family Spiritual care concerns: No Anes - Eval Final PreProcedure Day of Procedure 06/28/25 11:27 Patient weight: normal Heart: regular rate and rhythm Lungs: clear to auscultation Airway: Mallampati scale class II Neurological: alert and oriented Last oral intake: >/= 8 hours ASA classification: II Emergent: no Anesthetic plan: proceed Anesthesia type and monitoring: general GIVS and standard monitoring Results Review: All pre-operative results and documents have been reviewed as part of the pre-operative evaluation. Informed Consent: The patient's anesthetic plan and its attendant risks and benefits were discussed with the patient/family/POA. Questions were solicited and answers provided to the satisfaction of the patient/family/POA.
--- NOTE | 2025-06-28 12:29 | PM.HPGS ---
History of Present Illness History of Present Illness Consent: Risks, benefits, and alternatives have been discussed and questions answered. Patient agrees to proceed with procedure. Chief complaint: Diverticulitis of intestine, part unspecified, wit Narrative: Sunitha Herron is a 60 year old female with colitis 04/2025 treated with abx, here for colonoscopy (last one 2015) Review of Systems Review of Systems: All systems reviewed & are unremarkable except as noted in HPI and below PMFSH Past Medical History Medical History (Updated 06/28/25 @ 12:43 by Wale Abdullahi MD) History of colitis Dehydration Colitis HTN (hypertension) Family History Family History Mother Family history of coronary artery disease Social History Social History Smoking packs per day: 0 Smoking cigarettes per day: 0.0 Years smoked: 30 Smoking pack-years: 0.00 Smoking status: Never smoker Tobacco type: cigarettes Second hand tobacco smoke exposure: Yes Smoking end date: 03/16/20 Alcohol intake: never Substance use: never Substance use type: does not use Lack of Transportation: No Lack of Food: Never True Current Housing: I Have Housing Concerned About Future Housing: No Difficulty Paying Gas/Electric Bills: No Difficulty Paying for Meds: No Currently Unemployed: No Education: High School Diploma/GED Difficulty w/ Childcare or Family Care: No Living arrangements: with family Spiritual care concerns: No Meds Home Medications and Allergies Home Medications ?Medication ?Instructions ?Recorded ?Confirmed ?Type ospemifene 60 mg tablet (Osphena) 60 mg PO HS 09/15/19 06/28/25 History Calcium 600 2 tab-cap PO BID 01/11/24 06/21/25 History Vitamin D3 2 tab-cap PO DAILY 01/11/24 06/28/25 History lisinopril 10 See Rx Instructions .Route 06/27/25 06/28/25 Rx mg-hydrochlorothiazide 12.5 mg .COMPLEX #90 tabs tablet omeprazole 40 mg capsule,delayed See Rx Instructions .Route 06/27/25 06/28/25 Rx release .COMPLEX #90 caps Allergies Allergy/AdvReac Type Severity Reaction Status Date / Time chocolate Allergy Intermediate Blurry Verified 06/28/25 11:12 Vision escitalopram AdvReac Unknown Abdominal Verified 06/28/25 11:12 Pain Dairy AdvReac Severe DIARRHEA Uncoded 05/08/25 09:03 Vital Signs Vital Signs - 24 hr 06/28/25 11:14 Temperature 97.9 F Pulse Rate 90 Respiratory Rate 18 Blood Pressure 144/84 H Pulse Oximetry 100 Oxygen Delivery Room Air Exam Const: General: comfortable and no acute distress HENMT: Face/Nose/Sinus: Normal nares present Eyes: General: appearance normal, both eyes and all related structures Neck: Neck: no JVD Resp: Auscultation: clear to auscultation bilaterally Cardio: Rate: regular rate Rhythm: regular rhythm GI: Inspection: non-distended GI Palp: Yes Soft to palpation Skin: General skin exam: normal color Extrem: General: normal to inspection Psych: Mental Status: mental status grossly normal Assessment and Plan Assessment and plan (1) History of colitis: Code(s): Z87.19 - Personal history of other diseases of the digestive system Status: Acute Assessment and Plan: colonoscopy
[2025-06-28 12:44] VITALS: BP 117/72; PULSE 82; RESP 22; O2SAT 100
[2025-06-28 12:54] VITALS: BP 119/76; PULSE 67; RESP 15; O2SAT 100
[2025-06-28 13:04] VITALS: BP 134/72; PULSE 68; RESP 18; O2SAT 100
== END 2025-06-28 13:13 | disposition home or self-care (01) ==
PROVIDERS: PCP Family Medicine; Visit Provider Internal Medicine Gastroenterology
PROC: 0DJD8ZZ Inspection of Lower Intestinal Tract, Via Natural or Artificial Opening Endoscopic (ICD-10-PCS; CPT 45378; principal; 2025-06-28 12:30)
DX: Z09 Encounter for follow-up examination after completed treatment for conditions other than malignant neoplasm (principal); K57.30 Diverticulosis of large intestine without perforation or abscess without bleeding; K64.8 Other hemorrhoids; I10 Essential (primary) hypertension; Z82.49 Family history of ischemic heart disease and other diseases of the circulatory system
CPT/HCPCS: 45378; J2704; J7120